=== PATIENT | female | born 1960 | race American Indian/Alaskan Native ===

== ENCOUNTER 2016-10-23 08:46 | Emergency (ER) | payer OTHER ==
[2016-10-23 09:20] LABS: Urine Drugs of Abuse Note Disclamer
[2016-10-23 09:21] LABS: Basophils % (Auto) 0.3 % (0.0-1.8); Eosinophils % (Auto) 0.5 % (0.0-4.3); Hematocrit 45.3 % (30.3-42.9); Hemoglobin 14.9 gm/dl (10.1-14.3); Mean Corpuscular HGB Conc 33 % (30-34); Mean Corpuscular Hemoglobin 31 pg (28-32); Mean Corpuscular Volume 93 fl (79-97); Platelet Count 281 K/mm3 (140-440); Red Blood Count 4.86 M/mm3 (3.65-5.03)
[2016-10-23 09:36] LABS: Anion Gap 16 mmol/L; BUN/Creatinine Ratio 21.42; Blood Urea Nitrogen 15 mg/dL (7-17); Calcium 9.3 mg/dL (8.4-10.2); Carbon Dioxide 28 mmol/L (22-30); Chloride 101.9 mmol/L (98-107); Glucose 94 mg/dL (65-100); Potassium 3.7 mmol/L (3.6-5.0); Sodium 142 mmol/L (137-145)
[2016-10-23 09:38] LABS: Bilirubin,Urine NEG (Negative); Blood,Urine MOD (Negative); Ketones,Urine NEG (Negative); Leukocyte Esterase,Urine NEG (Negative); Mucus,Urine 1+ /HPF; Nitrite,Urine NEG (Negative); Urobilinogen,Urine < 2.0 mg/dL (<2.0)
--- NOTE | 2016-10-23 18:36 | Emergency Department Report ---
ED Extremity Problem HPI - General Chief complaint: Extremity Injury, Lower Stated complaint: LEG PAIN/NUMBNESS/TINGLING Time Seen by Provider: 10/23/16 18:06 Source: patient Mode of arrival: Ambulatory Limitations: No Limitations - History of Present Illness Initial comments: 56-year-old female presents to the emergency department complaining of right leg pain and numbness. Symptoms have been intermittent for the past 3 months. Patient states pain begins on the back of her right hip and radiates all the way to her foot. Pain is described as sharp. She reports occasional numbness in the leg as well. 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 She denies fever, bowel or bladder incontinence. Patient is also complaining of depression. She is asking to speak to someone about this. She reports difficulty with some tenets that she is housing. She denies auditory or visual hallucinations. She also denies homicidal or suicidal ideations. There are no other complaints. MD Complaint: extremity pain -: Gradual, month(s) (3) Location: right, lower extremity History of Same: Yes Radiation: distal Severity scale (0 -10): 8 Quality: sharp Consistency: intermittent Improves with: nothing Worsens with: nothing Associated Symptoms: denies other symptoms - Related Data Previous Rx's Medication Instructions Recorded Last Taken Type Amoxicillin [Amoxicillin TAB] 875 mg PO BID #4 tablet 03/21/15 Unknown Rx Naproxen [Naprosyn] 500 mg PO BID #30 tablet 10/23/16 Unknown Rx Allergies Allergy/AdvReac Type Severity Reaction Status Date / Time No Known Allergies Allergy Verified 03/18/15 13:22 ED Review of Systems ROS: Stated complaint: LEG PAIN/NUMBNESS/TINGLING Other details as noted in HPI Comment: All other systems reviewed and negative Musculoskeletal: as per HPI, myalgia Neurological: numbness Psychiatric: depression ED Past Medical Hx - Past Medical History Previous Medical History?: Yes Hx Psychiatric Treatment: Yes (Depression) - Surgical History Past Surgical History?: Yes Additional Surgical History: x 2. partial hysterectomy - Family History Family history: no significant - Social History Smoking Status: Current Every Day Smoker Substance Use Type: Alcohol, Cocaine, Marijuana - Medications Home Medications: Home Medications Medication Instructions Recorded Confirmed Last Taken Type Amoxicillin [Amoxicillin TAB] 875 mg PO BID #4 tablet 03/21/15 Unknown Rx Naproxen [Naprosyn] 500 mg PO BID #30 tablet 10/23/16 Unknown Rx ED Physical Exam - General Limitations: No Limitations General appearance: alert, in no apparent distress - Head Head exam: Present: atraumatic, normocephalic - Eye Eye exam: Present: normal appearance, PERRL, EOMI - ENT ENT exam: Present: normal exam, normal orophraynx, mucous membranes moist - Neck Neck exam: Present: normal inspection, full ROM. Absent: tenderness - Respiratory Respiratory exam: Present: normal lung sounds bilaterally. Absent: respiratory distress - Cardiovascular Cardiovascular Exam: Present: regular rate, normal rhythm, normal heart sounds - GI/Abdominal GI/Abdominal exam: Present: soft, normal bowel sounds. Absent: distended, tenderness - Extremities Exam Extremities exam: Present: normal inspection, full ROM. Absent: tenderness - Back Exam Back exam: Present: normal inspection, full ROM, tenderness (tenderness to palpation right sacroiliac joint). Absent: vertebral tenderness - Neurological Exam Neurological exam: Present: alert, oriented X3. Absent: motor sensory deficit - Skin Skin exam: Present: warm, dry, intact ED Course Vital Signs 10/23/16 10/23/16 10/23/16 08:51 18:15 18:19 Temperature 98.6 F Pulse Rate 94 H 70 Respiratory 20 16 16 Rate Blood Pressure 119/83 Blood Pressure 109/72 [Left] O2 Sat by Pulse 97 100 100 Oximetry ED Medical Decision Making - Lab Data Result diagrams: 10/23/16 09:02 10/23/16 09:02 - Medical Decision Making Laboratory results reviewed and discussed with the patient. Symptoms are consistent with sciatica. Patient will be treated with antivirals her medication. Per patient request, mental health is to evaluate the patient. 1944--patient has been evaluated by mental health and is being referred for outpatient treatment. Patient will be discharged home at this time. - Differential Diagnosis leg pain, sciatica, depression Critical care attestation.: If time is entered above; I have spent that time in minutes in the direct care of this critically ill patient, excluding procedure time. ED Disposition Clinical Impression: Sciatica of right side Depression Qualifiers: Depression Type: reactive depression Qualified Code(s): F32.9 - Major depressive disorder, single episode, unspecified Disposition: DC- TO HOME OR SELFCARE Is pt being admited?: No Condition: Stable Instructions: Sciatica (ED), Depression (ED) Prescriptions: Naproxen [Naprosyn] 500 mg PO BID #30 tablet Referrals: PRIMARY CARE, [Primary Care Provider] - 3-5 Days [facility] [Outside] - 3-5 Days Time of Disposition: 19:47
[2016-10-23 19:56] VITALS: BP 123/75
== END 2016-10-23 19:57 | disposition home or self-care (01) ==
LOC: ED 08:46
DX: M54.31 Sciatica, right side (principal); F32.9 Major depressive disorder, single episode, unspecified; F17.200 Nicotine dependence, unspecified, uncomplicated; F14.10 Cocaine abuse, uncomplicated; F12.10 Cannabis abuse, uncomplicated; Z90.711 Acquired absence of uterus with remaining cervical stump
CPT/HCPCS: 36415; 80048; 80307; 81001; 85025; 99284; G0480; 80320

== ENCOUNTER 2017-01-31 15:11 | Emergency (ER) | payer SELFPAY ==
[2017-01-31 15:31] VITALS: BP 112/78
--- NOTE | 2017-01-31 19:46 | Emergency Department Report ---
ED ENT HPI - General Chief complaint: Earache Stated complaint: RIGHT EAR PAIN Time Seen by Provider: 01/31/17 19:19 Source: patient Mode of arrival: Ambulatory Limitations: No Limitations - History of Present Illness Initial comments: This is a 57-year-old female nontoxic, well nourished in appearance, no acute signs of distress presents to the ED complaining of right earache 3 days. This distress pain is aching and level of 8 out of 10. Patient denies any trauma to the area. Denies any ear discharge, mastoid tenderness, or tragus pain. Patient denies any hearing loss, hearing changes, fever, chills, stiff neck, headache, nausea, vomiting chest and shortness of breath. Patient denies any allergies or past medical history besides depression. MD complaint: ear pain -: Gradual, days(s) (2) Location: R ear Severity: mild Severity scale (0 -10): 8 Quality: aching Consistency: constant Improves with: none Worsens with: none Associated Symptoms: denies: fever, cough, gum swelling, toothache, pain with swallowing, sore throat, tinnitus, hearing loss, discharge from ear, rhinorrhea - Related Data Previous Rx's Medication Instructions Recorded Last Taken Type Amoxicillin [Amoxicillin TAB] 875 mg PO BID #4 tablet 03/21/15 Unknown Rx Naproxen [Naprosyn] 500 mg PO BID #30 tablet 10/23/16 Unknown Rx Amoxicillin 500 mg PO BID #20 capsule 01/31/17 Unknown Rx Allergies Allergy/AdvReac Type Severity Reaction Status Date / Time No Known Allergies Allergy Verified 03/18/15 13:22 ED Dental HPI - General Chief complaint: Earache Stated complaint: RIGHT EAR PAIN Time Seen by Provider: 01/31/17 19:19 Source: patient Mode of arrival: Ambulatory Limitations: No Limitations - Related Data Previous Rx's Medication Instructions Recorded Last Taken Type Amoxicillin [Amoxicillin TAB] 875 mg PO BID #4 tablet 03/21/15 Unknown Rx Naproxen [Naprosyn] 500 mg PO BID #30 tablet 10/23/16 Unknown Rx Amoxicillin 500 mg PO BID #20 capsule 01/31/17 Unknown Rx Allergies Allergy/AdvReac Type Severity Reaction Status Date / Time No Known Allergies Allergy Verified 03/18/15 13:22 ED Review of Systems ROS: Stated complaint: RIGHT EAR PAIN Other details as noted in HPI Constitutional: denies: chills, fever Eyes: denies: eye pain, eye discharge, vision change ENT: ear pain. denies: throat pain Respiratory: denies: cough, shortness of breath, wheezing Cardiovascular: denies: chest pain, palpitations Endocrine: no symptoms reported Gastrointestinal: denies: abdominal pain, nausea, diarrhea Genitourinary: denies: urgency, dysuria, discharge Musculoskeletal: denies: back pain, joint swelling, arthralgia Skin: denies: rash, lesions Neurological: denies: headache, weakness, paresthesias Psychiatric: denies: anxiety, depression Hematological/Lymphatic: denies: easy bleeding, easy bruising ED Past Medical Hx - Past Medical History Hx Psychiatric Treatment: Yes (Depression) Additional medical history: DDD. pneumonia - Surgical History Additional Surgical History: x 2. partial hysterectomy - Social History Smoking Status: Never Smoker Substance Use Type: None - Medications Home Medications: Home Medications Medication Instructions Recorded Confirmed Last Taken Type Amoxicillin [Amoxicillin TAB] 875 mg PO BID #4 tablet 03/21/15 Unknown Rx Naproxen [Naprosyn] 500 mg PO BID #30 tablet 10/23/16 Unknown Rx Amoxicillin 500 mg PO BID #20 capsule 01/31/17 Unknown Rx ED Physical Exam - General Limitations: No Limitations General appearance: alert, in no apparent distress - Head Head exam: Present: atraumatic, normocephalic, normal inspection - Eye Eye exam: Present: normal appearance, PERRL, EOMI. Absent: scleral icterus, conjunctival injection, nystagmus, periorbital swelling, periorbital tenderness Pupils: Present: normal accommodation - ENT ENT exam: Present: normal exam, normal orophraynx, mucous membranes moist - Expanded ENT Exam Expanded Ear exam: Present: normal external inspection TM/Canal exam: Erythema: Right TM, Bulging: Right TM Mouth exam: Present: normal external inspection, tongue normal. Absent: drooling, trismus, muffled voice, tongue elevation, laceration Teeth exam: Present: normal inspection Throat exam: Positive: normal inspection. Negative: tonsillar erythema, tonsillomegaly, tonsillar exudate, R peritonsillar mass, L peritonsillar mass - Neck Neck exam: Present: normal inspection, full ROM. Absent: tenderness, meningismus, lymphadenopathy, thyromegaly - Respiratory Respiratory exam: Present: normal lung sounds bilaterally. Absent: respiratory distress, wheezes, rales, rhonchi, stridor, chest wall tenderness, accessory muscle use, decreased breath sounds, prolonged expiratory - Cardiovascular Cardiovascular Exam: Present: regular rate, normal rhythm, normal heart sounds. Absent: bradycardia, tachycardia, irregular rhythm, systolic murmur, diastolic murmur, rubs, gallop - GI/Abdominal GI/Abdominal exam: Present: soft, normal bowel sounds. Absent: distended, tenderness, guarding, rebound, rigid, diminished bowel sounds - Rectal Rectal exam: Present: deferred - Extremities Exam Extremities exam: Present: normal inspection, full ROM, normal capillary refill. Absent: tenderness, pedal edema, joint swelling, calf tenderness - Back Exam Back exam: Present: normal inspection, full ROM. Absent: tenderness, CVA tenderness (R), CVA tenderness (L), muscle spasm, paraspinal tenderness, vertebral tenderness, rash noted - Neurological Exam Neurological exam: Present: alert, oriented X3, CN II-XII intact, normal gait, reflexes normal - Psychiatric Psychiatric exam: Present: normal affect, normal mood - Skin Skin exam: Present: warm, dry, intact, normal color. Absent: rash ED Course Vital Signs 01/31/17 15:28 Temperature 98.2 F Pulse Rate 77 Respiratory 16 Rate Blood Pressure 112/78 O2 Sat by Pulse 99 Oximetry - Reevaluation(s) Reevaluation #1: 01/31/17 19:57 Patient is speaking in full sentences with no signs of distress noted. Critical care attestation.: If time is entered above; I have spent that time in minutes in the direct care of this critically ill patient, excluding procedure time. ED Disposition Clinical Impression: Otitis media Qualifiers: Otitis media type: unspecified Laterality: right Qualified Code(s): H66.91 - Otitis media, unspecified, right ear Disposition: - TO HOME OR SELFCARE Is pt being admited?: No Does the pt Need Aspirin: No Condition: Stable Instructions: Amoxicillin (By mouth), Otitis Media (ED) Additional Instructions: Follow-up with a primary care doctor in 3-5 days or if symptoms worsen and continue return to emergency room as soon as possible possible. Prescriptions: Amoxicillin 500 mg PO BID #20 capsule Referrals: PRIMARY CAREMD [Primary Care Provider] - 3-5 Days ALIRIO LOPEZ MD [Staff Physician] - 3-5 Days [facility] [Outside] - 3-5 Days [facility] [Outside] - 3-5 Days Forms: Work/School Release Form(ED)
== END 2017-01-31 20:05 | disposition home or self-care (01) ==
LOC: ED 15:11
DX: H66.91 Otitis media, unspecified, right ear (principal)
CPT/HCPCS: 99282

== ENCOUNTER 2017-03-05 03:29 | Emergency (ER) | payer SELFPAY ==
--- NOTE | 2017-03-05 05:12 | XRay Report ---
FINAL REPORT EXAM: XR ANKLE 2V LT HISTORY: ankle and foot pain and cramping COMPARISONS: None. FINDINGS: AP and lateral views left ankle Intact ankle mortise. No bone lesion, periosteal reaction, or fracture. No deformity or gross malalignment. Small Achilles insertional enthesophytes. IMPRESSION: No acute osseous finding involving the left ankle.
[2017-03-05] MEDS ORDERED: TYLENOL PO ONE (06:04)
[2017-03-05 07:47] VITALS: BP 120/81
--- NOTE | 2017-03-05 09:32 | Emergency Department Report ---
HPI - General Chief Complaint: Extremity Injury, Lower Time Seen by Provider: 03/05/17 09:15 - HPI HPI: There is a 57-year-old female with no family history just as easily complaining of left ankle pain that started last night before she came to the ED. Patient states she had no injuries trauma or falls. Patient states pain is throbbing and aching in nature and localized to the left ankle, nonradiating elsewhere. Patient states there is a bit better when she gets it elevated. In pain worsens with movement of the foot. She denies fevers, chills,chestpain, calf pain or any other problems. ED Past Medical Hx - Past Medical History Previous Medical History?: Yes Hx Psychiatric Treatment: Yes (Depression) Additional medical history: DDD. pneumonia. anemia - Surgical History Past Surgical History?: Yes Additional Surgical History: x 2. partial hysterectomy - Social History Smoking Status: Current Some Day Smoker Substance Use Type: None - Medications Home Medications: Home Medications Medication Instructions Recorded Confirmed Last Taken Type Amoxicillin [Amoxicillin TAB] 875 mg PO BID #4 tablet 03/21/15 Unknown Rx Amoxicillin 500 mg PO BID #20 capsule 01/31/17 Unknown Rx Cyclobenzaprine [Flexeril 10 MG 10 mg PO QHS #20 tablet 03/05/17 Unknown Rx TAB] Naproxen [Naprosyn TAB] 500 mg PO BID #30 tablet 03/05/17 Unknown Rx ED Review of Systems ROS: Stated complaint: LEFT LEG/ FOOT PAIN Other details as noted in HPI Constitutional: denies: chills, fever Eyes: denies: eye pain, eye discharge, vision change ENT: denies: ear pain, throat pain Respiratory: denies: cough, shortness of breath, wheezing Cardiovascular: denies: chest pain, palpitations Endocrine: no symptoms reported Gastrointestinal: denies: abdominal pain, nausea, diarrhea Genitourinary: denies: urgency, dysuria, discharge Musculoskeletal: arthralgia. denies: back pain, joint swelling Skin: denies: rash, lesions Neurological: denies: headache, weakness, paresthesias Psychiatric: denies: anxiety, depression Hematological/Lymphatic: denies: easy bleeding, easy bruising Physical Exam - Physical Exam Vital Signs: Vital Signs 03/05/17 03/05/17 03/05/17 03:38 06:16 07:39 Temperature 97.7 F 98.6 F Pulse Rate 85 71 Respiratory 22 22 16 Rate Blood Pressure 116/75 120/81 O2 Sat by Pulse 99 98 Oximetry Physical Exam: GENERAL: Alert and oriented x3, no apparent distress, Normal Gait, atraumatic. HEAD: Head is normocephalic and a-traumatic. LUNGS: Symetrical with respiration, No wheezing, no rales or crackles, CTAB. HEART: S1, S2 present, regular rate and rhythm without murmur, no rubs, no gallops. Non tender to palpation EXTREMITIES/MUSCULOSKELETAL: No cyanosis, clubbing, rash, lesions or edema. Full ROM bilaterally. LE Pulses 2+ bilaterally. LE 5+ strength bilaterally, straight leg raise negative bilaterally. tenderness to palpation of the left ankle, No swelling, no erythematous, no deformity seen. pt able to apply pressure to the foot bilat. No calf tenderness. NEUROLOGIC: The patient is cooperative with no focal neurologic deficits. Cranial nerves II through XII are grossly intact. Normal speech. Normal sensation in bilateral upper and lower extremities, No loss of sensation. SKIN: Warm and dry, No lesions, No ulceration or induration present. ED Course Vital Signs 03/05/17 03/05/17 03/05/17 03:38 06:16 07:39 Temperature 97.7 F 98.6 F Pulse Rate 85 71 Respiratory 22 22 16 Rate Blood Pressure 116/75 120/81 O2 Sat by Pulse 99 98 Oximetry ED Medical Decision Making - Radiology Data Radiology results: report reviewed, image reviewed FINAL REPORT EXAM: XR ANKLE 2V LT HISTORY: ankle and foot pain and cramping COMPARISONS: None. FINDINGS: AP and lateral views left ankle Intact ankle mortise. No bone lesion, periosteal reaction, or fracture. No deformity or gross malalignment. Small Achilles insertional enthesophytes. IMPRESSION: No acute osseous finding involving the left ankle. Transcribed By: MB Dictated By: WILLIAM GALARZA MD Electronically Authenticated By: WILLIAM GALARZA MD Signed Date/Time: 03/05/17108 - Medical Decision Making 36-year-old female presents to ED with ankle arthralgia ED course: Patient received Toradol and Flexeril in ED. X-ray of the ankle shows no acute deformity or abnormality I discussed x-ray results with patient. Discussed with patient to apply heat 3 times a day to affected ankle. Vital signs are normal patient is in no acute distress Discussed with patient follow-up with primary care physician. Discussed the patient and take medications as prescribed. Patient has no neurological deficit. Patient is alert and oriented 3 and understands all instructions given. Discussed drowsiness effect of Flexeril makes her drowsy and not to operate machinery while taking flexeril Critical care attestation.: If time is entered above; I have spent that time in minutes in the direct care of this critically ill patient, excluding procedure time. ED Disposition Clinical Impression: Ankle arthralgia Qualifiers: Laterality: left Qualified Code(s): M25.572 - Pain in left ankle and joints of left foot Disposition: DC- TO HOME OR SELFCARE Is pt being admited?: No Does the pt Need Aspirin: No Condition: Stable Instructions: Arthralgia (ED) Additional Instructions: If you're symptoms worsen please return to ED immediately Take medication as prescribed. Follow-up which her primary care physician. Prescriptions: Cyclobenzaprine [Flexeril 10 MG TAB] 10 mg PO QHS #20 tablet Naproxen [Naprosyn TAB] 500 mg PO BID #30 tablet Referrals: PRIMARY CARE, [Primary Care Provider] - 3-5 Days [facility] [Outside] - 3-5 Days [facility] [Outside] - 3-5 Days [facility] [Outside] - 3-5 Days Forms: Work/School Release Form(ED) Time of Disposition: 09:49
[2017-03-05] MEDS ORDERED: TORADOL IM ONE (09:36)
[2017-03-05] MEDS ORDERED: FLEXERIL PO ONE (09:36)
== END 2017-03-05 10:02 | disposition home or self-care (01) ==
LOC: ED 03:29
DX: M25.572 Pain in left ankle and joints of left foot (principal); D64.9 Anemia, unspecified; F17.200 Nicotine dependence, unspecified, uncomplicated
CPT/HCPCS: 73600; 96372; 99283; J1885

== ENCOUNTER 2017-10-27 02:57 | Emergency (ER) | payer SELFPAY ==
[2017-10-27] MEDS ORDERED: BOOSTRIX IM ONE (03:29)
--- NOTE | 2017-10-27 03:29 | Emergency Department Report ---
- General Chief Complaint: Wound/Laceration Stated Complaint: LAC TO LT INDEX FINGER Time Seen by Provider: 10/27/17 03:28 Source: patient Mode of arrival: Ambulatory Limitations: No Limitations - History of Present Illness Initial Comments: Condition is a 57-year-old female presents emergency room for a laceration to her left index finger. Patient states he dropped a mirror directly onto the palmar side of her index finger. Patient is unable to stop the bleeding. Patient is not taking any anticoagulants. Patient states the pain is a 6 out of 10. Patient states that her tetanus is not up-to-date. Laceration happened 3 hours ago. Pain is better with rest and worse with movement and palpation. -: Sudden Location: other Extremity Location: Left: Hand Place: home Patient Tetanus UTD: No Context: accidental Associated Symptoms: pain - Related Data Home Medications Medication Instructions Recorded Confirmed Last Taken PROzac 20 mg PO DAILY 10/27/17 10/27/17 Unknown SEROquel 50 mg PO HS 10/27/17 10/27/17 Unknown Allergies Allergy/AdvReac Type Severity Reaction Status Date / Time No Known Allergies Allergy Verified 03/18/15 13:22 ED Review of Systems ROS: Stated complaint: LAC TO LT INDEX FINGER Other details as noted in HPI Constitutional: denies: chills, fever Eyes: denies: eye pain, eye discharge, vision change ENT: denies: ear pain, throat pain Respiratory: denies: cough, shortness of breath, wheezing Cardiovascular: denies: chest pain, palpitations Endocrine: no symptoms reported Gastrointestinal: denies: abdominal pain, nausea, diarrhea Genitourinary: denies: urgency, dysuria, discharge Musculoskeletal: denies: back pain, joint swelling, arthralgia Skin: denies: rash, lesions Neurological: denies: headache, weakness, paresthesias Psychiatric: denies: anxiety, depression Hematological/Lymphatic: denies: easy bleeding, easy bruising ED Past Medical Hx - Past Medical History Previous Medical History?: Yes Hx Psychiatric Treatment: Yes (Depression) Additional medical history: DDD. pneumonia. anemia - Surgical History Past Surgical History?: Yes Additional Surgical History: x 2. partial hysterectomy - Family History Family history: no significant - Social History Smoking Status: Never Smoker Substance Use Type: None - Medications Home Medications: Home Medications Medication Instructions Recorded Confirmed Last Taken Type PROzac 20 mg PO DAILY 10/27/17 10/27/17 Unknown History SEROquel 50 mg PO HS 10/27/17 10/27/17 Unknown History ED Physical Exam - General Limitations: No Limitations General appearance: alert, in no apparent distress - Head Head exam: Present: atraumatic, normocephalic - Eye Eye exam: Present: normal appearance - ENT ENT exam: Present: mucous membranes moist - Neck Neck exam: Present: normal inspection - Respiratory Respiratory exam: Present: normal lung sounds bilaterally. Absent: respiratory distress - Cardiovascular Cardiovascular Exam: Present: regular rate, normal rhythm. Absent: systolic murmur, diastolic murmur, rubs, gallop - GI/Abdominal GI/Abdominal exam: Present: soft, normal bowel sounds - Extremities Exam Extremities exam: Present: normal inspection - Back Exam Back exam: Present: normal inspection - Neurological Exam Neurological exam: Present: alert, oriented X3 - Psychiatric Psychiatric exam: Present: normal affect, normal mood - Skin Skin exam: Present: warm, dry, normal color, other (laceration noted to left second finger on palmar side. Slow cap refill noted distally.). Absent: rash ED Course Vital Signs 10/27/17 10/27/17 10/27/17 03:19 05:26 05:56 Temperature 98.1 F 98.2 F Pulse Rate 94 H 99 H Respiratory 16 17 Rate Blood Pressure 125/79 Blood Pressure 122/67 [Left] O2 Sat by Pulse 98 100 99 Oximetry - Reevaluation(s) Reevaluation #1: Report given to physician at [facility]. Unable to Doppler the patient's finger due to not having a Doppler. . Patient does have a delay in Refill on the distal aspect that finger. Surgeon at [place] made aware of this Patient agrees with plan of care and transfer to [place]. MS: For transport to [place]. EMS to transfer patient to [place]. 10/27/17 04:27 - Consultations Consultation #1: [facility] hand consulted. Dr Clarke accepted. full report given to [facility]. 10/27/17 04:25 ED Medical Decision Making - Lab Data Result diagrams: 10/27/17 03:57 10/27/17 03:57 - Radiology Data Radiology results: report reviewed No fractures noted - Medical Decision Making Patient is a 57-year-old female that presents emergency room with a laceration to the left index finger palmar side. Positive arterial bleed. Patient to be transferred to [facility] for further evaluation and treatment. - Differential Diagnosis tendon injury. Laceration. Lacerated arterial. Arterial bleed Critical Care Time: Yes Critical care attestation.: If time is entered above; I have spent that time in minutes in the direct care of this critically ill patient, excluding procedure time. Critical Care Time: 20 minutes spent for critical care time ED Disposition Clinical Impression: Arterial hemorrhage, Tendon injury Laceration of left index finger Qualifiers: Encounter type: initial encounter Damage to nail status: without damage Foreign body presence: without foreign body Qualified Code(s): S61.211A - Laceration without foreign body of left index finger without damage to nail, initial encounter Disposition: DC/TX-70 ANOTHER TYPE HLTHCARE Is pt being admited?: No Does the pt Need Aspirin: No Condition: Critical Time of Disposition: 04:31
--- NOTE | 2017-10-27 04:12 | XRay Report ---
FINAL REPORT EXAM: XR HAND 2V LT HISTORY: Left index finger injury and laceration. COMPARISONS: None. FINDINGS: AP and lateral portable views of the left hand Extensive soft tissue injury involving the left is index finger. No acute fracture or, periosteal reaction, gross malalignment, deformity or radiodense foreign body. Scattered mild distal interphalangeal osteoarthrosis. Moderate 1st carpometacarpal and triscaphe osteoarthrosis. IMPRESSION: Left index finger soft tissue injury without fracture or radiodense foreign body identified. 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
[2017-10-27 04:13] LABS: Hematocrit 43.4 % (30.3-42.9); Hemoglobin 14.4 gm/dl (10.1-14.3); Mean Corpuscular HGB Conc 33 % (30-34); Mean Corpuscular Hemoglobin 30 pg (28-32); Mean Corpuscular Volume 91 fl (79-97); Platelet Count 363 K/mm3 (140-440); Red Blood Count 4.78 M/mm3 (3.65-5.03); Red Cell Distribution Width 15.6 % (13.2-15.2)
[2017-10-27 04:34] LABS: Alanine Aminotransferase 77 units/L (7-56); Albumin 4.5 g/dL (3.9-5); BUN/Creatinine Ratio 34; Blood Urea Nitrogen 17 mg/dL (7-17); Calcium 9.6 mg/dL (8.4-10.2); Hemolysis Index 7
[2017-10-27] MEDS ORDERED: ZOFRAN ONE (05:21)
[2017-10-27] MEDS ORDERED: DILAUDID ONE (05:21)
[2017-10-27] MEDS ORDERED: ZOFRAN IV ONE (05:22)
[2017-10-27] MEDS ORDERED: DILAUDID IV ONE (05:22)
[2017-10-27 05:57] VITALS: BP 122/67
== END 2017-10-27 06:07 | disposition other institution (70) ==
LOC: ED 02:57
DX: S61.211A Laceration without foreign body of left index finger without damage to nail, initial encounter (principal); S56.422A Laceration of extensor muscle, fascia and tendon of left index finger at forearm level, initial encounter; R58 Hemorrhage, not elsewhere classified; Z90.710 Acquired absence of both cervix and uterus; W25.XXXA Contact with sharp glass, initial encounter; Y93.89 Activity, other specified; Y92.89 Other specified places as the place of occurrence of the external cause; Y99.8 Other external cause status
CPT/HCPCS: 36415; 73120; 80053; 85027; 96374; 96375; 99285; J1170; J2405